=== PATIENT | female | born 1980 | race Caucasian/White ===

== ENCOUNTER 2022-04-04 08:58 | Emergency (ER) | payer SELFPAY ==
[2022-04-04] MEDS ORDERED: Amoxicillin/Potassium Clav 875 MG TAB ONE (09:31)
== END 2022-04-04 09:28 | disposition home or self-care (01) ==
LOC: CSHERS 08:58
DX: J01.90 Acute sinusitis, unspecified (principal)
CPT/HCPCS: 99283